=== PATIENT | female | born 1955 | race Caucasian/White ===

== ENCOUNTER 2022-04-21 09:25 | Emergency (ER) | payer OTHER ==
[~2022-04-21] VITALS: Ht 167.6 cm; Wt 76.4 kg
[2022-04-21 10:05] LABS: BASOPHILS # (AUTO) 0.1 X10'3 (0-0.2); BASOPHILS % (AUTO) 0.6 % (0-1); EOSINOPHILS # (AUTO) 0.1 X10'3 (0-0.9); EOSINOPHILS % (AUTO) 1.2 % (0-6); HEMOGLOBIN 11.1 g/dl (12.0-16.0); LYMPHOCYTES # (AUTO) 2.6 X10'3 (1.1-4.8); LYMPHOCYTES % (AUTO) 26.7 % (21-51); MEAN CORPUSCULAR HGB CONC 32.6 g/dL (33.0-36.5); MEAN CORPUSCULAR VOLUME 67.4 FL (78-98); MEAN PLATELET VOLUME 9.4 FL (7.4-10.4); MONOCYTES # (AUTO) 0.8 X10'3 (0-0.9); MONOCYTES % (AUTO) 8.2 % (2-12); NEUTROPHILS # (AUTO) 6.1 X10'3 (1.8-7.7); NEUTROPHILS % (AUTO) 63.3 % (42-75); PLATELET COUNT 227 X10'3 (140-440); RED BLOOD COUNT 5.05 X10'6 (4.20-5.60); RED CELL DISTRIBUTION WIDTH 16.1 % (11.5-14.5); WHITE BLOOD COUNT 9.6 X10'3 (4.5-11.0)
[2022-04-21 10:20] LABS: ALANINE AMINOTRANSFERASE 35 U/L (12-78); ALBUMIN 3.5 G/DL (3.4-5.0); ALBUMIN/GLOBULIN RATIO 1.1 (1.1-1.5); ALKALINE PHOSPHATASE 65 IU/L (46-116); ANION GAP 13 (8-16); ASPARTATE AMINO TRANSFERASE 22 U/L (10-37); BILIRUBIN,TOTAL 1.6 MG/DL (0.1-1.0); BLOOD UREA NITROGEN 9 MG/DL (7-18); BUN/CREATININE RATIO 9.8 (6.6-38.0); CALCIUM 9.1 MG/DL (8.5-10.1); CHLORIDE 102 MMOL/L (99-107); CREATININE 0.92 MG/DL (0.40-0.90); GLUCOSE 145 MG/DL (70-104); SODIUM 136 MMOL/L (135-145); TOTAL CARBON DIOXIDE 20.9 MMOL/L (24-32); TOTAL PROTEIN 6.8 G/DL (6.4-8.2); eGFR 61 ML/MIN
[2022-04-21 10:21] LABS: POTASSIUM 2.9 MMOL/L (3.5-5.1)
--- NOTE | 2022-04-21 10:27 | NUR ---
Dr Robert made aware k 2.9
[2022-04-21 10:53] LABS: PLATELET ESTIMATE NORMAL
[2022-04-21 10:54] LABS: ANISOCYTOSIS 1+; HYPOCHROMASIA 2+; MICROCYTOSIS 2+
[2022-04-21 10:59] LABS: ELLIPTOCYTES 1+; POLYCHROMASIA 1+; TARGET CELLS FEW; TEAR DROP CELLS 1+
[2022-04-21 11:00] LABS: ACANTHOCYTES FEW
[2022-04-21] MEDS ORDERED: POTASSIUM BICARB 20meq eff tab 20 MEQ TABLET.EFF PO STA (11:46)
[2022-04-21] MEDS ORDERED: potassium Cl 10 mEq/100mL bag IV ONE (11:50)
[2022-04-21] MEDS ORDERED: normal saline 500ml IV soln 500 ML IV SCH (11:50)
[2022-04-21] MEDS ORDERED: AZIT250T27 PO (13:55)
[2022-04-21] MEDS ORDERED: POTA-192 PO (13:55)
[2022-04-21 14:00] VITALS: BP 120/75
--- NOTE | 2022-04-22 09:44 | NUR ---
Patient left a patient belongings bag with a pink towel in it, Called listed number at which left a voicemail message to call ER back.
--- NOTE | 2022-04-22 09:46 | NUR ---
Hortensia emerson, called back regarding pink towel that was left in ER. She stated that they knew they probably would be leaving it so it was a "throw away towel". She stated that we can throw it in the trash.
== END 2022-04-21 14:27 | disposition home or self-care (01) ==
LOC: ER 09:26
DX: J40 Bronchitis, not specified as acute or chronic (principal); E87.6 Hypokalemia; Z20.822 Contact with and (suspected) exposure to COVID-19; Z79.899 Other long term (current) drug therapy
CPT/HCPCS: 36415; 71045; 80053; 83880; 84484; 85008; 85025; 87502; 87503; 87635; 93005; 96365; 99285; C9803; J3480; J7040; 99284